=== PATIENT | male | born 1965 | race Caucasian/White ===

== ENCOUNTER 2022-09-24 14:41 | Inpatient (IN) | payer OTHER ==
[2022-09-24 15:34] VITALS: BMI 25.1
[2022-09-24] MEDS ORDERED: BENZONATATE 200 MG CAPSULE PO PRN (17:38)
[2022-09-24] MEDS ORDERED: MAG HYDROX/AL HYDROX/SIMETH 30 ML UNIT-DOSE CUP PO PRN (17:38)
[2022-09-24] MEDS ORDERED: NALOXONE HCL (KLOXXADO) 8 MG SPRAY NS PRN (17:38)
[2022-09-24] MEDS ORDERED: NALOXONE HCL 0.4 MG/ML VIAL IM PRN (17:38)
[2022-09-24] MEDS ORDERED: guaiFENesin 600 MG TABLET.ER (FP) PO PRN (17:38)
[2022-09-24] MEDS ORDERED: hydrOXYzine PAMOATE 25 MG CAPSULE (FP) PO PRN (17:38)
[2022-09-24] MEDS ORDERED: POLYETHYLENE GLYCOL (HEALTHYLAX) 3350 17 GM PACKET PO PRN (17:38)
[2022-09-24] MEDS ORDERED: BENZOCAINE/MENTHOL (CHLORASEPTIC ) LOZENGE MM PRN (17:38)
[2022-09-24] MEDS ORDERED: LOPERAMIDE HCL 2 MG CAPSULE PO PRN (17:38)
[2022-09-24] MEDS ORDERED: MAGNESIUM HYDROX 2400MG/30ML ORAL SUSPENSION 30 ML CUP PO PRN (17:38)
[2022-09-24] MEDS ORDERED: IBUPROFEN 600 MG TABLET (FP) PO PRN (17:38)
[2022-09-24] MEDS ORDERED: DICYCLOMINE HCL 10 MG CAPSULE PO PRN (17:38)
[2022-09-24] MEDS ORDERED: BISMUTH SUBSALICYLATE 524 MG/30 ML PO PRN (17:38)
[2022-09-24] MEDS ORDERED: ONDANSETRON *ODT* 4 MG TABLET SL PRN (17:38)
[2022-09-24] MEDS ORDERED: chlordiazePOXIDE HCL 25 MG CAPSULE PO PRN (17:38)
[2022-09-24] MEDS: METHOCARBAMOL 500 MG TABLET PO PRN (18:53)
[2022-09-24] MEDS: ACETAMINOPHEN 325 MG TABLET (FP) PO PRN (20:03)
[2022-09-24] MEDS: THIAMINE HCL 100 MG TABLET (FP) PO SCH (22:46)
[2022-09-24] MEDS: MELATONIN 5 MG TABLETS PO SCH (22:46)
[2022-09-24] MEDS: chlordiazePOXIDE HCL 25 MG CAPSULE PO SCH (22:47)
[2022-09-25] MEDS: chlordiazePOXIDE HCL 25 MG CAPSULE PO SCH ×3 (05:38→16:47)
[2022-09-25] MEDS: METHOCARBAMOL 500 MG TABLET PO PRN ×2 (05:38→14:08)
[2022-09-25] MEDS: PRENATAL VITAMINS W/ FOLIC ACID TABLET (FP) PO SCH (10:14)
[2022-09-25 11:10] LABS: HEMOGLOBIN 8.4 GM/dL (11.7-16.9); MCHC 33.5 g/dl (32.0-35.9); MEAN CELL VOLUME 83.6 fl (80-96); MEAN PLT VOLUME 7.9 fl (7.5-11.1); PLATELET COUNT 91 10^3/uL (134-434); RBC 2.99 M/mm3 (4.00-5.60); RDW 15.3 % (11.9-15.9); WHITE BLOOD COUNT 3.4 K/mm3 (4.0-10.0)
[2022-09-25 11:14] LABS: BLOOD UREA NITROGEN 5.8 mg/dL (7-18)
[2022-09-25 11:15] LABS: CALCIUM 8.2 mg/dL (8.5-10.1)
[2022-09-25 11:16] LABS: ALBUMIN 2.1 g/dl (3.4-5.0)
[2022-09-25 11:19] LABS: CREATININE 0.6 mg/dL (0.55-1.3)
[2022-09-25 11:20] LABS: BILIRUBIN,TOTAL 1.1 mg/dL (0.2-1); TOT PROT 7.2 g/dl (6.4-8.2)
[2022-09-25] MEDS ORDERED: POTASSIUM CHLORIDE ORAL LIQUID 20 MEQ/15 ML PO ONE ×2 (14:49→18:00)
[2022-09-25] MEDS: LACTULOSE 20 GM/30 ML UDC (FOR ORAL USE ONLY) PO SCH ×3 (15:47→22:11)
[2022-09-25] MEDS: IBUPROFEN 400 MG TABLET (FP) PO PRN (16:46)
[2022-09-25] MEDS: ACETAMINOPHEN 325 MG TABLET (FP) PO PRN (17:43)
[2022-09-25] MEDS ORDERED: methaDONE HCL 10 MG TABLET PO ONE (19:33)
[2022-09-25] MEDS ORDERED: IBUPROFEN 600 MG TABLET (FP) PO PRN (20:45)
[2022-09-25] MEDS: THIAMINE HCL 100 MG TABLET (FP) PO SCH (22:04)
[2022-09-25] MEDS: MELATONIN 5 MG TABLETS PO SCH (22:04)
[2022-09-25] MEDS: ATORVASTATIN CA 40 MG TABLET (FP) PO SCH (22:04)
[2022-09-25] MEDS: levETIRAcetam XR 750 MG TAB PO SCH (22:04)
[2022-09-25] MEDS: METHYL SALICYLATE/MENTHOL OINT 30 GM TUBE TP SCH (22:05)
[2022-09-25] MEDS: LORazepam 1 MG TABLET PO SCH (22:06)
[2022-09-26] MEDS ORDERED: chlordiazePOXIDE HCL 25 MG CAPSULE PO SCH (05:00)
[2022-09-26] MEDS: LORazepam 1 MG TABLET PO SCH ×3 (05:02→18:10)
[2022-09-26] MEDS: IBUPROFEN 400 MG TABLET (FP) PO PRN ×2 (05:03→18:11)
[2022-09-26] MEDS: METHOCARBAMOL 500 MG TABLET PO PRN ×2 (05:03→18:11)
[2022-09-26] MEDS: levETIRAcetam XR 750 MG TAB PO SCH (10:37)
[2022-09-26] MEDS: LACTULOSE 20 GM/30 ML UDC (FOR ORAL USE ONLY) PO SCH ×4 (10:37→23:00)
[2022-09-26] MEDS: metoPROLOL SUCCINATE 25 MG TAB.SR.24H (FP) PO SCH (10:38)
[2022-09-26] MEDS: PRENATAL VITAMINS W/ FOLIC ACID TABLET (FP) PO SCH (10:38)
[2022-09-26] MEDS: ASPIRIN COATED 81 MG TABLET.EC PO SCH (10:44)
[2022-09-26] MEDS: ACETAMINOPHEN 325 MG TABLET (FP) PO PRN ×2 (10:46→23:01)
[2022-09-26] MEDS: METHYL SALICYLATE/MENTHOL OINT 30 GM TUBE TP SCH ×2 (10:53→23:00)
[2022-09-26] MEDS ORDERED: methaDONE HCL 10 MG TABLET PO ONE (13:45)
[2022-09-26] MEDS: ATORVASTATIN CA 40 MG TABLET (FP) PO SCH (23:01)
[2022-09-26] MEDS: THIAMINE HCL 100 MG TABLET (FP) PO SCH (23:02)
[2022-09-26] MEDS: LORazepam 0.5 MG TABLET PO SCH (23:02)
[2022-09-26] MEDS: MELATONIN 5 MG TABLETS PO SCH (23:02)
[2022-09-27] MEDS ORDERED: chlordiazePOXIDE HCL 10 MG CAPSULE PO PRN
[2022-09-27] MEDS: IBUPROFEN 400 MG TABLET (FP) PO PRN ×3 (01:10→17:53)
[2022-09-27] MEDS: LORazepam 1 MG TABLET PO PRN ×3 (02:46→22:32)
[2022-09-27] MEDS: METHOCARBAMOL 500 MG TABLET PO PRN ×2 (04:08→14:00)
[2022-09-27] MEDS: ACETAMINOPHEN 325 MG TABLET (FP) PO PRN (04:16)
[2022-09-27] MEDS ORDERED: chlordiazePOXIDE HCL 10 MG CAPSULE PO SCH (05:00)
[2022-09-27] MEDS: LORazepam 0.5 MG TABLET PO SCH ×3 (05:33→17:44)
[2022-09-27] MEDS ORDERED: methaDONE HCL 10 MG TABLET PO ONE (06:00)
[2022-09-27] MEDS: PRENATAL VITAMINS W/ FOLIC ACID TABLET (FP) PO SCH (09:46)
[2022-09-27] MEDS: LACTULOSE 20 GM/30 ML UDC (FOR ORAL USE ONLY) PO SCH ×4 (09:47→22:33)
[2022-09-27] MEDS: metoPROLOL SUCCINATE 25 MG TAB.SR.24H (FP) PO SCH (09:47)
[2022-09-27] MEDS: ASPIRIN COATED 81 MG TABLET.EC PO SCH (09:47)
[2022-09-27] MEDS: METHYL SALICYLATE/MENTHOL OINT 30 GM TUBE TP SCH ×2 (09:48→22:33)
[2022-09-27] MEDS: levETIRAcetam XR 750 MG TAB PO SCH (09:48)
[2022-09-27 11:31] LABS: HEMATOCRIT 26.1 % (35.4-49); MCH 28.8 pg (25.7-33.7); MCHC 34.6 g/dl (32.0-35.9); MEAN CELL VOLUME 83.4 fl (80-96); PLATELET COUNT 106 10^3/uL (134-434); RBC 3.13 M/mm3 (4.00-5.60); RDW 15.7 % (11.9-15.9); RETICULOCYTES 1.46 % (0.5-1.5); WHITE BLOOD COUNT 8.4 K/mm3 (4.0-10.0)
[2022-09-27 11:46] LABS: ALBUMIN 2.2 g/dl (3.4-5.0); CALCIUM 8.1 mg/dL (8.5-10.1); TOT PROT 7.2 g/dl (6.4-8.2)
[2022-09-27 11:49] LABS: BLOOD UREA NITROGEN 10.6 mg/dL (7-18); CREATININE 0.8 mg/dL (0.55-1.3)
[2022-09-27] MEDS ORDERED: POTASSIUM CHLORIDE ORAL LIQUID 20 MEQ/15 ML PO ONE (14:16)
[2022-09-27] MEDS: FERROUS SO4 325 MG TABLET (FP) PO SCH (17:44)
[2022-09-27] MEDS: POTASSIUM CHLORIDE ORAL LIQUID 20 MEQ/15 ML PO SCH (22:31)
[2022-09-27] MEDS: THIAMINE HCL 100 MG TABLET (FP) PO SCH (22:32)
[2022-09-27] MEDS: ATORVASTATIN CA 40 MG TABLET (FP) PO SCH (22:32)
[2022-09-27] MEDS: MELATONIN 5 MG TABLETS PO SCH (22:34)
[2022-09-28] MEDS ORDERED: LORazepam 0.5 MG TABLET PO PRN
[2022-09-28] MEDS: METHOCARBAMOL 500 MG TABLET PO PRN ×2 (01:40→14:39)
[2022-09-28] MEDS: IBUPROFEN 400 MG TABLET (FP) PO PRN ×3 (01:41→19:47)
[2022-09-28] MEDS ORDERED: chlordiazePOXIDE HCL 10 MG CAPSULE PO SCH (05:00)
[2022-09-28] MEDS ORDERED: LORazepam 0.5 MG TABLET PO ONE (05:00)
[2022-09-28] MEDS: methaDONE HCL 40 MG DISPERSABLE TABLET PO SCH (06:24)
[2022-09-28] MEDS: FERROUS SO4 325 MG TABLET (FP) PO SCH ×3 (07:24→18:13)
[2022-09-28] MEDS: POTASSIUM CHLORIDE ORAL LIQUID 20 MEQ/15 ML PO SCH ×2 (10:30→23:10)
[2022-09-28] MEDS: PRENATAL VITAMINS W/ FOLIC ACID TABLET (FP) PO SCH (10:30)
[2022-09-28] MEDS: levETIRAcetam XR 750 MG TAB PO SCH (10:30)
[2022-09-28] MEDS: metoPROLOL SUCCINATE 25 MG TAB.SR.24H (FP) PO SCH (10:30)
[2022-09-28] MEDS: ASPIRIN COATED 81 MG TABLET.EC PO SCH (10:30)
[2022-09-28] MEDS: LACTULOSE 20 GM/30 ML UDC (FOR ORAL USE ONLY) PO SCH ×4 (10:31→23:17)
[2022-09-28] MEDS: METHYL SALICYLATE/MENTHOL OINT 30 GM TUBE TP SCH ×2 (11:05→23:17)
[2022-09-28] MEDS: SILVER SULFADIAZINE 1% TOP CREAM 50 GM JAR TP SCH ×2 (13:24→23:10)
[2022-09-28] MEDS: ACETAMINOPHEN 325 MG TABLET (FP) PO PRN (18:10)
[2022-09-28] MEDS: SULFAMETHOXAZOLE/TRIMETHOPRIM 800MG/160MG D.S. TABLET PO SCH (23:09)
[2022-09-28] MEDS: MELATONIN 5 MG TABLETS PO SCH (23:09)
[2022-09-28] MEDS: THIAMINE HCL 100 MG TABLET (FP) PO SCH (23:10)
[2022-09-28] MEDS: ATORVASTATIN CA 40 MG TABLET (FP) PO SCH (23:10)
[2022-09-29] MEDS: IBUPROFEN 400 MG TABLET (FP) PO PRN ×2 (01:00→05:43)
[2022-09-29] MEDS: METHOCARBAMOL 500 MG TABLET PO PRN (01:00)
[2022-09-29] MEDS ORDERED: chlordiazePOXIDE HCL 10 MG CAPSULE PO ONE (05:00)
[2022-09-29] MEDS: methaDONE HCL 40 MG DISPERSABLE TABLET PO SCH (05:43)
[2022-09-29] MEDS: FERROUS SO4 325 MG TABLET (FP) PO SCH ×3 (07:53→17:46)
[2022-09-29 10:00] VITALS: PULSE 71
[2022-09-29] MEDS: METHYL SALICYLATE/MENTHOL OINT 30 GM TUBE TP SCH ×2 (10:35→22:32)
[2022-09-29] MEDS: SULFAMETHOXAZOLE/TRIMETHOPRIM 800MG/160MG D.S. TABLET PO SCH ×2 (10:35→22:32)
[2022-09-29] MEDS: metoPROLOL SUCCINATE 25 MG TAB.SR.24H (FP) PO SCH (10:35)
[2022-09-29] MEDS: levETIRAcetam XR 750 MG TAB PO SCH (10:35)
[2022-09-29] MEDS: LACTULOSE 20 GM/30 ML UDC (FOR ORAL USE ONLY) PO SCH ×4 (10:35→22:32)
[2022-09-29] MEDS: PRENATAL VITAMINS W/ FOLIC ACID TABLET (FP) PO SCH (10:35)
[2022-09-29] MEDS: ASPIRIN COATED 81 MG TABLET.EC PO SCH (10:35)
[2022-09-29] MEDS: SILVER SULFADIAZINE 1% TOP CREAM 50 GM JAR TP SCH ×2 (10:36→22:32)
[2022-09-29 12:25] VITALS: BP 91/54; RESP 17; TEMP 97.8
[2022-09-29] MEDS: MELATONIN 5 MG TABLETS PO SCH (22:32)
[2022-09-29] MEDS: ATORVASTATIN CA 40 MG TABLET (FP) PO SCH (22:32)
[2022-09-29] MEDS: THIAMINE HCL 100 MG TABLET (FP) PO SCH (22:33)
== END 2022-09-29 23:51 | disposition short-term general hospital (02) | DRG 773 ==
LOC: YASAS 14:41 → Y6N 18:36 → Y3N 18:49
PROVIDERS: ADMIT Allergy & Immunology; ATTEND Surgery
PROC: HZ2ZZZZ Detoxification Services for Substance Abuse Treatment (ICD-10-PCS; principal; 2022-09-24)
DX: F10.230 Alcohol dependence with withdrawal, uncomplicated (principal); F11.20 Opioid dependence, uncomplicated; F10.24 Alcohol dependence with alcohol-induced mood disorder; E87.6 Hypokalemia; E72.20 Disorder of urea cycle metabolism, unspecified; G40.909 Epilepsy, unspecified, not intractable, without status epilepticus; L03.116 Cellulitis of left lower limb; M54.50 Low back pain, unspecified; R50.9 Fever, unspecified; Z87.891 Personal history of nicotine dependence; Z86.73 Personal history of transient ischemic attack (TIA), and cerebral infarction without residual deficits
CPT/HCPCS: 36415; 80053; 80177; 82140; 82607; 82746; 83540; 83550; 84132; 85025; 85027; 85045; 86780; C9803-CS; U0003; U0005

== ENCOUNTER 2022-09-29 12:53 | Inpatient (IN) | payer OTHER ==
[2022-09-29 13:03] VITALS: BMI 24.3
[2022-09-29] MEDS ORDERED: ACETAMINOPHEN 500 MG TABLET (FP) PO ONE (13:29)
[2022-09-29] MEDS ORDERED: ACETAMINOPHEN INJECTION 100 ML IVPB ONE (14:09)
[2022-09-29 14:14] LABS: VENOUS BASE EXCESS 1.4 mmol/L (-2-2); VENOUS O2 SATURATION 95.9 % (70-80); VENOUS PCO2 36.4 mmHg (38-52); VENOUS PH 7.458 (7.310-7.410)
[2022-09-29 14:16] LABS: HEMATOCRIT 26.2 % (35.4-49); HEMOGLOBIN 8.8 GM/dL (11.7-16.9); MCH 28.1 pg (25.7-33.7); MCHC 33.5 g/dl (32.0-35.9); MEAN CELL VOLUME 84.1 fl (80-96); PLATELET COUNT 77 10^3/uL (134-434); RBC 3.11 M/mm3 (4.00-5.60); RDW 16.5 % (11.9-15.9); WHITE BLOOD COUNT 6.3 K/mm3 (4.0-10.0)
[2022-09-29 14:35] LABS: CALCIUM 7.8 mg/dL (8.5-10.1)
[2022-09-29 14:36] LABS: ALBUMIN 1.9 g/dl (3.4-5.0); BLOOD UREA NITROGEN 21.4 mg/dL (7-18)
[2022-09-29 14:38] LABS: CREATININE 0.9 mg/dL (0.55-1.3)
[2022-09-29 14:41] LABS: BILIRUBIN,TOTAL 0.8 mg/dL (0.2-1); TOT PROT 6.7 g/dl (6.4-8.2)
[2022-09-29 14:44] LABS: ANISOCYTOSIS 1+; MACROCYTOSIS 0; PLATELET ESTIMATE DECREASED
[2022-09-29] MEDS ORDERED: VANCOMYCIN 1 GM in D5W (PRE-DOCKED) 1,000 MG/250 ML (RESTRICTED TO ID ONLY IVPB ONE (15:02)
[2022-09-29] MEDS ORDERED: CEFEPIME 2 GM in DEXTROSE 5%-WATER 100 ML IVPB ONE (15:02)
[2022-09-29] MEDS ORDERED: CEFEPIME 2 GM/100 ML BAG IVPB ONE (15:20)
[2022-09-29] MEDS ORDERED: VANCOMYCIN/WATER FOR INJ (PEG) 1,000 MG/200 ML BAG IVPB ONE (15:47)
[2022-09-29] MEDS ORDERED: KETOROLAC TROMETHAMINE 15 MG/ML VIAL IVPUSH ONE (16:25)
[2022-09-29] MEDS ORDERED: KETOROLAC TROMETHAMINE 15 MG/ML VIAL ONE (16:29)
[2022-09-29] MEDS ORDERED: AMPICILLIN NA/SULBACTAM NA 3 GM in SODIUM CHLORIDE 100 ML IVPB SCH ×2 (17:00→17:15)
[2022-09-29 18:08] LABS: ERYTHROCYTE SEDIMENTATION RATE 70 mm/hr (0-20)
[2022-09-29] MEDS ORDERED: ACETAMINOPHEN 1000 MG/100 ML BAG IVPB ONE (22:44)
[2022-09-30] MEDS: AMPICILLIN NA/SULBACTAM NA 3 GM in SODIUM CHLORIDE 100 ML IVPB SCH ×3 (03:25→23:34)
[2022-09-30 07:39] LABS: HEMATOCRIT 25.4 % (35.4-49); HEMOGLOBIN 8.6 GM/dL (11.7-16.9); MCHC 33.6 g/dl (32.0-35.9); MEAN CELL VOLUME 83.3 fl (80-96); MEAN PLT VOLUME 9.4 fl (7.5-11.1); PLATELET COUNT 81 10^3/uL (134-434); RBC 3.05 M/mm3 (4.00-5.60); RDW 16.2 % (11.9-15.9); WHITE BLOOD COUNT 8.3 K/mm3 (4.0-10.0)
[2022-09-30] MEDS ORDERED: methaDONE HCL 40 MG DISPERSABLE TABLET PO ONE (07:45)
[2022-09-30 08:02] LABS: ALBUMIN 1.9 g/dl (3.4-5.0); BLOOD UREA NITROGEN 20.6 mg/dL (7-18); CALCIUM 7.9 mg/dL (8.5-10.1)
[2022-09-30 08:03] LABS: MAGNESIUM 1.5 mg/dL (1.8-2.4)
[2022-09-30 08:04] LABS: PHOSPHOROUS 2.8 mg/dL (2.5-4.9)
[2022-09-30 08:06] LABS: BILIRUBIN,TOTAL 0.9 mg/dL (0.2-1); TOT PROT 6.7 g/dl (6.4-8.2)
[2022-09-30] MEDS ORDERED: MAGNESIUM SULF 50% (8.12 MEQ/2 ML-1 GM VIAL) IVPB ONE (08:09)
[2022-09-30] MEDS ORDERED: SODIUM CHLORIDE 1,000 ML IV SCH (08:15)
[2022-09-30] MEDS ORDERED: ACETAMINOPHEN 1000 MG/100 ML BAG IVPB PRN (09:02)
[2022-09-30 09:24] LABS: ANISOCYTOSIS 1+; MACROCYTOSIS 0; PLATELET ESTIMATE DECREASED
[2022-09-30] MEDS ORDERED: methaDONE HCL 40 MG DISPERSABLE TABLET PO SCH (09:30)
[2022-09-30] MEDS: ENOXAPARIN NA (PORCINE) 40 MG/0.4 ML DISP.SYRIN SQ SCH (10:13)
[2022-09-30] MEDS: POLYETHYLENE GLYCOL (HEALTHYLAX) 3350 17 GM PACKET PO SCH ×2 (10:13→21:54)
[2022-09-30] MEDS: levETIRAcetam 500 MG TABLET (FP) PO SCH (10:13)
[2022-09-30] MEDS: COLLAGENASE CLOSTRIDIUM HIST. 30 GRAMS TUBE TP SCH (10:14)
[2022-09-30] MEDS: MULTIVITAMINS (DAILY MVI) TABLET (FP) PO SCH (10:14)
[2022-09-30] MEDS: FOLIC ACID 1 MG TABLET (FP) PO SCH (10:14)
[2022-09-30] MEDS: THIAMINE HCL 100 MG TABLET (FP) PO SCH (10:15)
[2022-09-30] MEDS: AMMONIUM LACTATE 12% LOTION 225 GM BOTTLE TP SCH ×2 (10:25→21:55)
[2022-09-30] MEDS: PIPERACILLIN/TAZOB 3.375 GM 3.375 GM in DEXTROSE 5%-WATER - 50 ML IVPB SCH (17:43)
[2022-09-30] MEDS ORDERED: PIPERACILLIN/TAZOB 3.375 GM 3.375 GM in DEXTROSE 5%-WATER - 50 ML IVPB SCH (18:00)
[2022-10-01] MEDS: PIPERACILLIN/TAZOB 3.375 GM 3.375 GM in DEXTROSE 5%-WATER - 50 ML IVPB SCH ×3 (01:08→18:03)
[2022-10-01] MEDS: methaDONE HCL 40 MG DISPERSABLE TABLET PO SCH (05:34)
[2022-10-01 07:21] LABS: BASO % 0.4 % (0-2.0); HEMOGLOBIN 7.9 GM/dL (11.7-16.9); LYMPH % 7.6 % (8-40); MCH 28.5 pg (25.7-33.7); MCHC 34.6 g/dl (32.0-35.9); MEAN CELL VOLUME 82.4 fl (80-96); MONO % 19.5 % (3.8-10.2); NEUT % 71.5 % (42.8-82.8); PLATELET COUNT 91 10^3/uL (134-434); RBC 2.79 M/mm3 (4.00-5.60); RDW 16.5 % (11.9-15.9); WHITE BLOOD COUNT 6.5 K/mm3 (4.0-10.0)
[2022-10-01 07:32] LABS: CALCIUM 7.2 mg/dL (8.5-10.1)
[2022-10-01 07:33] LABS: ALBUMIN 1.7 g/dl (3.4-5.0); BLOOD UREA NITROGEN 19.6 mg/dL (7-18); MAGNESIUM 1.7 mg/dL (1.8-2.4)
[2022-10-01 07:36] LABS: CREATININE 0.9 mg/dL (0.55-1.3); PHOSPHOROUS 3.2 mg/dL (2.5-4.9)
[2022-10-01 07:37] LABS: BILIRUBIN,TOTAL 1.1 mg/dL (0.2-1); TOT PROT 6.4 g/dl (6.4-8.2)
[2022-10-01] MEDS ORDERED: MAGNESIUM SULF 50% (8.12 MEQ/2 ML-1 GM VIAL) IVPB ONE (08:00)
[2022-10-01] MEDS: levETIRAcetam 500 MG TABLET (FP) PO SCH (09:56)
[2022-10-01] MEDS: MULTIVITAMINS (DAILY MVI) TABLET (FP) PO SCH (09:57)
[2022-10-01] MEDS: FOLIC ACID 1 MG TABLET (FP) PO SCH (09:57)
[2022-10-01] MEDS: KETOROLAC TROMETHAMINE 30 MG/1 ML VIAL IVPUSH PRN (09:58)
[2022-10-01] MEDS: THIAMINE HCL 100 MG TABLET (FP) PO SCH (09:58)
[2022-10-01] MEDS: ENOXAPARIN NA (PORCINE) 40 MG/0.4 ML DISP.SYRIN SQ SCH (09:58)
[2022-10-01] MEDS: POLYETHYLENE GLYCOL (HEALTHYLAX) 3350 17 GM PACKET PO SCH ×2 (09:59→22:14)
[2022-10-01] MEDS: AMMONIUM LACTATE 12% LOTION 225 GM BOTTLE TP SCH ×2 (09:59→22:14)
[2022-10-01] MEDS: COLLAGENASE CLOSTRIDIUM HIST. 30 GRAMS TUBE TP SCH (10:00)
[2022-10-01] MEDS: ACETAMINOPHEN 325 MG TABLET (FP) PO PRN (18:03)
[2022-10-02] MEDS: PIPERACILLIN/TAZOB 3.375 GM 3.375 GM in DEXTROSE 5%-WATER - 50 ML IVPB SCH ×3 (02:50→18:14)
[2022-10-02] MEDS: ACETAMINOPHEN 325 MG TABLET (FP) PO PRN (02:50)
[2022-10-02 03:32] LABS: EPI CELLS 2 /uL (0-25.1); HYALINE CASTS 0 /uL (0-3.1); PH,URINE 5.5 (5.0-8.0); URINE APPEARANCE CLOUDY; URINE BACTERIA 1 /uL (0-1359); URINE BILIRUBIN NEGATIVE (NEGATIVE); URINE COLOR YELLOW; URINE GLUCOSE (UA) NEGATIVE (NEGATIVE); URINE KETONE NEGATIVE (NEGATIVE); URINE LEUK ESTERASE TRACE (NEGATIVE); URINE NITRITE NEGATIVE (NEGATIVE); URINE PROTEIN 1+ (NEGATIVE); URINE WBC 24 /uL (0-25.8)
[2022-10-02] MEDS: methaDONE HCL 40 MG DISPERSABLE TABLET PO SCH (05:40)
[2022-10-02] MEDS: KETOROLAC TROMETHAMINE 30 MG/1 ML VIAL IVPUSH PRN ×2 (05:43→14:09)
[2022-10-02 07:23] LABS: URINE RBC 529 /uL (0-23.9)
[2022-10-02 09:28] LABS: INR 1.42 (0.83-1.09); PROTHROMBIN TIME (PATIENT) 16.4 SEC (9.7-13.0)
[2022-10-02 09:29] LABS: HEMATOCRIT 22.1 % (35.4-49); HEMOGLOBIN 7.5 GM/dL (11.7-16.9); MCH 28.3 pg (25.7-33.7); MEAN CELL VOLUME 83.1 fl (80-96); MEAN PLT VOLUME 9.2 fl (7.5-11.1); PLATELET COUNT 100 10^3/uL (134-434); RBC 2.66 M/mm3 (4.00-5.60); RDW 16.7 % (11.9-15.9); WHITE BLOOD COUNT 6.2 K/mm3 (4.0-10.0)
[2022-10-02 09:40] LABS: CALCIUM 7.5 mg/dL (8.5-10.1)
[2022-10-02 09:41] LABS: ALBUMIN 1.7 g/dl (3.4-5.0)
[2022-10-02 09:44] LABS: CREATININE 1.2 mg/dL (0.55-1.3); PHOSPHOROUS 2.7 mg/dL (2.5-4.9)
[2022-10-02 09:45] LABS: BILIRUBIN,TOTAL 1.1 mg/dL (0.2-1); TOT PROT 6.2 g/dl (6.4-8.2)
[2022-10-02 10:02] LABS: ANISOCYTOSIS 1+; PLATELET ESTIMATE DECREASED
[2022-10-02] MEDS: FOLIC ACID 1 MG TABLET (FP) PO SCH (10:07)
[2022-10-02] MEDS: ENOXAPARIN NA (PORCINE) 40 MG/0.4 ML DISP.SYRIN SQ SCH (10:07)
[2022-10-02] MEDS: THIAMINE HCL 100 MG TABLET (FP) PO SCH (10:08)
[2022-10-02] MEDS: levETIRAcetam 500 MG TABLET (FP) PO SCH (10:08)
[2022-10-02] MEDS: POLYETHYLENE GLYCOL (HEALTHYLAX) 3350 17 GM PACKET PO SCH ×2 (10:08→21:47)
[2022-10-02] MEDS: MULTIVITAMINS (DAILY MVI) TABLET (FP) PO SCH (10:09)
[2022-10-02] MEDS: AMMONIUM LACTATE 12% LOTION 225 GM BOTTLE TP SCH ×2 (10:09→21:47)
[2022-10-02] MEDS: COLLAGENASE CLOSTRIDIUM HIST. 30 GRAMS TUBE TP SCH (10:10)
[2022-10-02] MEDS ORDERED: LACTULOSE 20 GM/30 ML UDC (FOR ORAL USE ONLY) PO ONE (16:11)
[2022-10-03] MEDS: PIPERACILLIN/TAZOB 3.375 GM 3.375 GM in DEXTROSE 5%-WATER - 50 ML IVPB SCH ×2 (01:05→13:44)
[2022-10-03] MEDS: ACETAMINOPHEN 325 MG TABLET (FP) PO PRN (05:47)
[2022-10-03] MEDS: methaDONE HCL 40 MG DISPERSABLE TABLET PO SCH (05:47)
[2022-10-03 09:01] LABS: BASO % 0.5 % (0-2.0); EOS % 2.5 % (0-4.5); HEMATOCRIT 23.4 % (35.4-49); MCH 28.4 pg (25.7-33.7); MCHC 34.2 g/dl (32.0-35.9); MEAN CELL VOLUME 83.1 fl (80-96); MEAN PLT VOLUME 8.7 fl (7.5-11.1); MONO % 17.8 % (3.8-10.2); NEUT % 69.2 % (42.8-82.8); PLATELET COUNT 137 10^3/uL (134-434); RBC 2.81 M/mm3 (4.00-5.60); RDW 16.5 % (11.9-15.9); WHITE BLOOD COUNT 9.2 K/mm3 (4.0-10.0)
[2022-10-03 09:31] LABS: ANISOCYTOSIS 0; HELMET CELLS 0; HOWELL-JOLLY BODIES 0; MACROCYTOSIS 0; OVALOCYTE 0; ROULEAU 0; SICKELED CELLS 0; TARGET CELLS 0; TEAR DROP CELLS 0; TOXIC GRANULATION 0
[2022-10-03 09:33] LABS: ALBUMIN 1.8 g/dl (3.4-5.0); BILIRUBIN,TOTAL 0.8 mg/dL (0.2-1); BLOOD UREA NITROGEN 20.5 mg/dL (7-18); CALCIUM 7.7 mg/dL (8.5-10.1); MAGNESIUM 2.2 mg/dL (1.8-2.4); PHOSPHOROUS 2.9 mg/dL (2.5-4.9); TOT PROT 6.6 g/dl (6.4-8.2)
[2022-10-03] MEDS ORDERED: LORazepam 2 MG/ML SDV VIAL IVPUSH ONE (11:42)
[2022-10-03] MEDS: ENOXAPARIN NA (PORCINE) 40 MG/0.4 ML DISP.SYRIN SQ SCH (13:29)
[2022-10-03] MEDS: levETIRAcetam 500 MG TABLET (FP) PO SCH (13:30)
[2022-10-03] MEDS: POLYETHYLENE GLYCOL (HEALTHYLAX) 3350 17 GM PACKET PO SCH ×2 (13:31→21:01)
[2022-10-03] MEDS: THIAMINE HCL 100 MG TABLET (FP) PO SCH (13:31)
[2022-10-03] MEDS: FOLIC ACID 1 MG TABLET (FP) PO SCH (13:31)
[2022-10-03] MEDS: CEFTRIAXONE 1 GM in DEXTROSE 5%-WATER - 50 ML IVPB SCH (13:31)
[2022-10-03] MEDS: COLLAGENASE CLOSTRIDIUM HIST. 30 GRAMS TUBE TP SCH (13:32)
[2022-10-03] MEDS: AMMONIUM LACTATE 12% LOTION 225 GM BOTTLE TP SCH ×2 (13:33→21:02)
[2022-10-03] MEDS: MULTIVITAMINS (DAILY MVI) TABLET (FP) PO SCH (13:34)
[2022-10-03] MEDS: SODIUM CHLORIDE 1,000 ML IV SCH (13:40)
[2022-10-03] MEDS: KETOROLAC TROMETHAMINE 30 MG/1 ML VIAL IVPUSH PRN (18:11)
[2022-10-04] MEDS: SODIUM CHLORIDE 1,000 ML IV SCH (03:05)
[2022-10-04] MEDS: methaDONE HCL 40 MG DISPERSABLE TABLET PO SCH (05:58)
[2022-10-04 08:52] LABS: BASO % 0.4 % (0-2.0); EOS % 1.9 % (0-4.5); HEMATOCRIT 21.3 % (35.4-49); HEMOGLOBIN 7.2 GM/dL (11.7-16.9); MCHC 33.8 g/dl (32.0-35.9); MEAN CELL VOLUME 82.8 fl (80-96); MEAN PLT VOLUME 8.3 fl (7.5-11.1); MONO % 12.6 % (3.8-10.2); NEUT % 77.1 % (42.8-82.8); PLATELET COUNT 141 10^3/uL (134-434); RBC 2.58 M/mm3 (4.00-5.60); RDW 16.7 % (11.9-15.9); WHITE BLOOD COUNT 9.4 K/mm3 (4.0-10.0)
[2022-10-04 09:05] LABS: BLOOD UREA NITROGEN 14.3 mg/dL (7-18); CALCIUM 7.5 mg/dL (8.5-10.1)
[2022-10-04 09:09] LABS: CREATININE 0.7 mg/dL (0.55-1.3)
[2022-10-04] MEDS ORDERED: IRON SUCROSE INJECTION 300 MG in SODIUM CHLORIDE 235 ML IVPB ONE (10:30)
[2022-10-04] MEDS: THIAMINE HCL 100 MG TABLET (FP) PO SCH (10:39)
[2022-10-04] MEDS: CEFTRIAXONE 1 GM in DEXTROSE 5%-WATER - 50 ML IVPB SCH (10:39)
[2022-10-04] MEDS: levETIRAcetam 500 MG TABLET (FP) PO SCH (10:39)
[2022-10-04] MEDS: MULTIVITAMINS (DAILY MVI) TABLET (FP) PO SCH (10:39)
[2022-10-04] MEDS: ENOXAPARIN NA (PORCINE) 40 MG/0.4 ML DISP.SYRIN SQ SCH (10:40)
[2022-10-04] MEDS: FOLIC ACID 1 MG TABLET (FP) PO SCH (10:40)
[2022-10-04] MEDS: AMMONIUM LACTATE 12% LOTION 225 GM BOTTLE TP SCH ×2 (10:41→22:00)
[2022-10-04] MEDS: POLYETHYLENE GLYCOL (HEALTHYLAX) 3350 17 GM PACKET PO SCH ×2 (10:41→22:00)
[2022-10-04] MEDS: COLLAGENASE CLOSTRIDIUM HIST. 30 GRAMS TUBE TP SCH (10:50)
[2022-10-04] MEDS: KETOROLAC TROMETHAMINE 30 MG/1 ML VIAL IVPUSH PRN (20:18)
[2022-10-05] MEDS ORDERED: MELATONIN 5 MG TABLETS PO PRN (00:06)
[2022-10-05] MEDS: methaDONE HCL 40 MG DISPERSABLE TABLET PO SCH (06:11)
[2022-10-05] MEDS: POLYETHYLENE GLYCOL (HEALTHYLAX) 3350 17 GM PACKET PO SCH ×2 (09:59→22:08)
[2022-10-05] MEDS: ENOXAPARIN NA (PORCINE) 40 MG/0.4 ML DISP.SYRIN SQ SCH (09:59)
[2022-10-05] MEDS: CEFTRIAXONE 1 GM in DEXTROSE 5%-WATER - 50 ML IVPB SCH (09:59)
[2022-10-05] MEDS: ACETAMINOPHEN 325 MG TABLET (FP) PO PRN (10:00)
[2022-10-05] MEDS: levETIRAcetam 500 MG TABLET (FP) PO SCH (10:00)
[2022-10-05] MEDS: AMMONIUM LACTATE 12% LOTION 225 GM BOTTLE TP SCH ×2 (10:00→22:08)
[2022-10-05] MEDS: MULTIVITAMINS (DAILY MVI) TABLET (FP) PO SCH (10:01)
[2022-10-05] MEDS: THIAMINE HCL 100 MG TABLET (FP) PO SCH (10:01)
[2022-10-05] MEDS: COLLAGENASE CLOSTRIDIUM HIST. 30 GRAMS TUBE TP SCH (10:01)
[2022-10-05] MEDS: FOLIC ACID 1 MG TABLET (FP) PO SCH (10:01)
[2022-10-05] MEDS: AMOX TR/POT CLAV 875MG/125MG TABLETS (FP) PO SCH (18:12)
[2022-10-06] MEDS: methaDONE HCL 40 MG DISPERSABLE TABLET PO SCH (05:09)
[2022-10-06] MEDS: AMOX TR/POT CLAV 875MG/125MG TABLETS (FP) PO SCH (08:49)
[2022-10-06 09:24] VITALS: TEMP 97.8
[2022-10-06] MEDS: COLLAGENASE CLOSTRIDIUM HIST. 30 GRAMS TUBE TP SCH (09:46)
[2022-10-06] MEDS: AMMONIUM LACTATE 12% LOTION 225 GM BOTTLE TP SCH (09:46)
[2022-10-06] MEDS: levETIRAcetam 500 MG TABLET (FP) PO SCH (09:46)
[2022-10-06] MEDS: THIAMINE HCL 100 MG TABLET (FP) PO SCH (09:47)
[2022-10-06] MEDS: FOLIC ACID 1 MG TABLET (FP) PO SCH (09:47)
[2022-10-06] MEDS: ENOXAPARIN NA (PORCINE) 40 MG/0.4 ML DISP.SYRIN SQ SCH (09:48)
[2022-10-06] MEDS: MULTIVITAMINS (DAILY MVI) TABLET (FP) PO SCH (09:48)
[2022-10-06] MEDS: POLYETHYLENE GLYCOL (HEALTHYLAX) 3350 17 GM PACKET PO SCH (09:48)
[2022-10-06 14:27] VITALS: BP 143/77; PULSE 76; RESP 20
[2022-10-06] MEDS: ACETAMINOPHEN 325 MG TABLET (FP) PO PRN (15:04)
== END 2022-10-06 16:40 | disposition home or self-care (01) | DRG 383 ==
LOC: JER 12:53 → JERBED 16:35 → J7W 18:36
PROVIDERS: ADMIT Internal Medicine
DX: L03.116 Cellulitis of left lower limb (principal); E83.42 Hypomagnesemia; R78.81 Bacteremia; E87.1 Hypo-osmolality and hyponatremia; I10 Essential (primary) hypertension; B19.20 Unspecified viral hepatitis C without hepatic coma; D50.9 Iron deficiency anemia, unspecified; E78.5 Hyperlipidemia, unspecified; L08.9 Local infection of the skin and subcutaneous tissue, unspecified; R31.9 Hematuria, unspecified; Z86.73 Personal history of transient ischemic attack (TIA), and cerebral infarction without residual deficits
CPT/HCPCS: 0241U-QW; 36415; 71045-TC-FY; 73590-TC-LT-FY; 73720-LT; 76775-TC; 76856-TC; 80048; 80053; 81003; 82140; 82272; 82607; 82728; 82746; 82747; 82803; 83540; 83550; 83605; 83735; 84100; 84153; 85014; 85025; 85045; 85610; 85651; 86140; 87040; 87086; 87186; 93005; 93010; 99285-25; A9579; J1756